=== PATIENT | male | born 1980 | race Two or more races ===

== ENCOUNTER → 2020-03-05 13:34 | Outpatient (BNVA) | payer SELFPAY | PROVIDERS: PCP Internal Medicine; Visit Provider Internal Medicine | DX: Z76.89 Persons encountering health services in other specified circumstances (principal) ==

== ENCOUNTER 2020-10-01 15:03 | Outpatient (REF) | payer OTHER, SELFPAY ==
[2020-10-01 15:36] LABS: COVID-19 Test Negative (Negative)
== END 2020-10-01 15:04 | disposition home or self-care (01) ==
LOC: HO.LAB 15:03
PROVIDERS: Visit Provider Internal Medicine
DX: Z20.822 Contact with and (suspected) exposure to COVID-19 (principal)
CPT/HCPCS: 36415; 87635; C9803

== ENCOUNTER 2020-10-20 11:37 | Outpatient (REF) | payer OTHER, SELFPAY ==
[2020-10-20 11:55] LABS: COVID-19 Test Negative (Negative)
== END 2020-10-20 11:38 | disposition home or self-care (01) ==
LOC: HO.LAB 11:37
PROVIDERS: Visit Provider Internal Medicine
DX: Z20.822 Contact with and (suspected) exposure to COVID-19 (principal)
CPT/HCPCS: 36415; 87635; C9803

== ENCOUNTER 2021-05-20 09:41 | Outpatient (REF) | payer OTHER, SELFPAY ==
[2021-05-20 09:53] LABS: MANUAL DIFF FLAG NO
[2021-05-20 10:13] LABS: Basophils Absolute Auto 0.1 X10*3/uL (0.0-0.2); Basophils Percent Auto 0.9 % (0-2); Eosinophils Absolute Auto 0.1 X10*3/uL (0.0-0.4); Eosinophils Percent Auto 1.1 % (0-4); Hematocrit 48.7 % (42.0-52.0); Hemoglobin 16.3 g/dl (14.0-18.0); Imm Gran Abs Auto 0.05 X10*3/uL (0.00-0.03); Imm Gran Pct Auto 0.6 % (0.0-0.4); Lymphocytes Absolute Auto 2.5 X10*3/uL (1.2-4.9); Lymphocytes Percent Auto 31.7 % (20-40); Mean Corpuscular HGB Conc 33.5 g/dl (31.0-36.0); Mean Corpuscular Volume 89.7 fL (80.0-98.0); Mean Platelet Volume 9.6 fL (9.4-12.4); Monocytes Absolute Auto 0.7 X10*3/uL (0.1-1.2); Monocytes Percent Auto 8.7 % (2-11); Neutrophils Absolute Auto 4.5 x10*3/uL (2.0-8.3); Platelet Count 254 X10*3/uL (160-400); Red Blood Count 5.43 X10*6/uL (4.60-5.80); Red Cell Distribution Width 12.7 % (11.0-16.0); White Blood Count 7.9 X10*3/uL (4.8-10.8)
[2021-05-20 10:40] LABS: Anion Gap 11 (12-20); Blood Urea Nitrogen 19 mg/dL (9-16); Calcium 10.1 mg/dL (8.4-10.2); Carbon Dioxide 28 mmol/L (22-29); Chloride 107 mmol/L (96-108); Estimated Glomerular Filt Rate > 60; Glucose Random 114 mg/dL (60-115); Potassium 4.6 mmol/L (3.3-5.1); Sodium 141 mmol/L (135-145)
== END 2021-05-20 09:42 | disposition home or self-care (01) ==
LOC: HO.LAB 09:41
PROVIDERS: Visit Provider Internal Medicine
DX: Z13.0 Encounter for screening for diseases of the blood and blood-forming organs and certain disorders involving the immune mechanism (principal); R51.9 Headache, unspecified
CPT/HCPCS: 36415; 80048; 85025

== ENCOUNTER 2021-07-11 10:24 | Outpatient (REF) | payer OTHER, SELFPAY ==
--- NOTE | ~2021-07-11 | US_ITS ---
EXAMINATION: US ABDOMEN COMPLETE CLINICAL INFORMATION: Unspecified abdominal pain. COMPARISON: Abdominal ultrasound 07/21/2012. TECHNIQUE: Real-time imaging of the abdominal viscera. FINDINGS: PANCREAS: Normal. ABDOMINAL AORTA: The proximal, mid, and distal segments are normal in caliber. INFERIOR VENA CAVA: Visualized portions are normal. LIVER: The liver is normal in size. The liver contour is normal. There is diffuse increased liver echogenicity. No focal hepatic lesion. There is no intrahepatic biliary duct dilatation seen. GALLBLADDER: Gallbladder wall thickness measures 0.25 cm. The gallbladder is physiologically distended without evidence of stones, sludge, polyps, wall thickening or pericholecystic fluid. COMMON BILE DUCT: Normal in caliber measuring 0.4 cm in diameter. RIGHT KIDNEY: There is anechoic complex cyst in the midpole measuring 2.8 x 2.9 x 2.4 cm. No hydronephrosis or renal calculi. The kidney measures 13.1 cm in maximum dimension. LEFT KIDNEY: Normal. No hydronephrosis. No renal calculi or focal parenchymal lesions. The kidney measures 13.8 cm in maximum dimension. SPLEEN: Normal. The spleen measures 12.6 cm in maximum dimension. FREE FLUID: None. US/US abdomen complete IMPRESSION: Complex cyst midpole right kidney measuring 2.9 cm. Rest of the abdominal ultrasound is unremarkable.
== END 2021-07-11 10:25 | disposition home or self-care (01) ==
LOC: HO.HMGCX 10:24
PROVIDERS: PCP Internal Medicine; Visit Provider Internal Medicine
DX: R10.9 Unspecified abdominal pain (principal)
CPT/HCPCS: 76700

== ENCOUNTER 2021-08-02 14:30 | Outpatient (REF) | payer OTHER, SELFPAY ==
--- NOTE | ~2021-08-02 | CT_ITS ---
EXAMINATION: CT ABDOMEN WITHOUT AND WITH CONTRAST CLINICAL INFORMATION: Unspecified abdominal pain. COMPARISON: None. TECHNIQUE: Contiguous axial thin section helical images of the abdomen were performed before and after the administration of oral contrast and 85 mL of Omnipaque 350 intravenous contrast. The data set was reformatted in the coronal and sagittal planes and reviewed on an independent workstation. This CT examination was performed using dose optimization techniques as appropriate, variously including the following: *Automated exposure control *Adjustment of mA and/or kV according to patient size (this includes techniques or standardized protocols for targeted exams where dose is matched to indication/reason for exam; i.e. extremities or head) *Use of iterative reconstruction technique DLP: 966 mGy-cm FINDINGS: LUNG BASES: Normal. LIVER, GALLBLADDER, AND BILIARY TREE: Attenuation is normal. Two calcified granulomas are present. No hepatic masses or bile duct dilatation is seen. The gallbladder is unremarkable. PANCREAS: Normal. SPLEEN: Spleen is enlarged measuring 14.9 cm in greatest dimension. ADRENAL GLANDS AND KIDNEYS: Both adrenal glands appear normal. Both kidneys are unremarkable. Incidental note made of a 2.7 cm Bosniak class I cyst at the right lower pole. This needs no further imaging or follow-up. No solid renal masses are seen. No renal calculi. No hydronephrosis. BOWEL LOOPS: The visualized bowel is unremarkable. LYMPH NODES: No retroperitoneal lymphadenopathy is seen. VASCULAR: Unremarkable. BONES: Some minimal degenerative changes are present in the spine. CT/CT abdomen wo/w con IMPRESSION: Unremarkable examination. A significant abnormality to account for the patient's abdominal pain has not been found. Fleischner guidelines were followed.
[2021-08-02] MEDS: iohexoL 350 MG/ML 100 ML INFUS..BTL IV (15:01)
== END 2021-08-02 14:31 | disposition home or self-care (01) ==
LOC: HO.CT 14:30
PROVIDERS: PCP Internal Medicine; Visit Provider Internal Medicine
DX: R10.9 Unspecified abdominal pain (principal)
CPT/HCPCS: 74170; Q9967

== ENCOUNTER → 2021-10-20 07:38 | Outpatient (BNVA) | payer OTHER, SELFPAY | PROVIDERS: PCP Internal Medicine; Referring Provider Internal Medicine; Visit Provider Nurse Practitioner | DX: K59.04 Chronic idiopathic constipation (principal) ==

== ENCOUNTER → 2022-02-27 08:08 | Outpatient (BNVA) | payer SELFPAY | PROVIDERS: PCP Internal Medicine; Visit Provider Physician Assistant Medical | DX: Z02.79 Encounter for issue of other medical certificate (principal) ==

== ENCOUNTER → 2024-02-18 13:36 | Outpatient (BNVA) | payer SELFPAY | PROVIDERS: PCP Internal Medicine; Visit Provider Physician Assistant Medical | DX: Z02.79 Encounter for issue of other medical certificate (principal) ==

== ENCOUNTER 2024-12-29 15:11 | Emergency (ER) | payer OTHER, SELFPAY ==
--- NOTE | ~2024-12-29 | XR_ITS ---
EXAMINATION: XR LUMBOSACRAL SPINE CLINICAL INFORMATION: low back pain COMPARISON: Correlated to CT abdomen and pelvis dated August 02, 2021. TECHNIQUE: AP and lateral views FINDINGS: Superior endplate sclerosis and small Schmorl nodes at L3 and L4. Small marginal osteophyte formation and L3 and L4. Facet joint hypertrophy at L4-5. Subchondral cyst formation at L5-S1 facets. No lytic or blastic lesions.. XR/XR lumbar spine 2-3V IMPRESSION: Multilevel thoracolumbar spondylosis without acute fracture or trauma-related listhesis. Spondylolysis pars interarticularis at L5-S1 without listhesis cannot be excluded. Electronically signed by: Dylan Harris MD 12/29/2024 03:54 PM EDT
[2024-12-29 15:27] VITALS: BP 159/88; PULSE 98; RESP 18; TEMP 36.7; O2SAT 96; BMI 42.0
--- NOTE | 2024-12-29 15:27 | ED_ITS ---
HPI - General Adult General Chief complaint: Back Pain/Injury Stated complaint: back pain longer than a day Time Seen by Provider: 12/29/24 21:22 Source: patient Mode of arrival: ambulatory Limitations: no limitations History of Present Illness ED Provider: Dr. Marina Castillo HPI narrative: 44 year old with no past medical history presenting with low back pain radiating to his bilateral hips ongoing for the last 48 hours or so. Patient reports that he got up from bed yesterday morning and felt pain. Had gone to bed feeling relatively normal. Admits he chronically has back pain for the last several years but has never had pain this severe. He has never seen a doctor about his back pain. He denies associated fever or chills, headaches or vision changes, stiff neck, loss of bowel or bladder control, urinary retention, direct trauma to the spine or specific injury, numbness/tingling/weakness of the extremities, IV drug use, history of recent instrumentation or injections into the spine. Had been feeling well prior to this. No recent illness including cough or cold- type symptoms, abdominal discomfort, urinary complaints or bowel changes. Had a normal bowel movement yesterday without hematochezia or melena. Related Data Previous Rx's ?Medication ?Instructions ?Recorded cyclobenzaprine 10 mg tablet 10 mg PO TID #10 tabs 09/19 methylprednisolone 4 mg tablets in 4 mg PO DAILY #21 e a 12/29/24 a dose pack (Medrol (Madhav)) Allergies Allergy/AdvReac Type Severity Reaction Status Date / Time No Known Allergies Allergy Verified 12/29/24 15:30 Review of Systems Review of Systems: as per HPI, full review of systems performed and negative but for the above mentioned pertinent positives and negatives. 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 Medical History Morbid obesity Surgical History No history of previous surgery Family History Family History Father Diabetes Mother Glaucoma Social History Social History Household Members: Significant Other and Children Housing: House Alcohol intake: current Alcohol intake frequency: does not drink Patient Tobacco Use Status: Never used Tobacco Smoked in Last 30 Days: No e-Cigarette/Vaping Use: Never Used Second Hand Smoke Exposure: No Use of substances other than those prescribed or required for medical reasons: No Advance Directives: No Advance Directives Information Provided: No Current occupational status: employed Cognitive needs: No Hearing needs: No Vision needs: No Physical Exam ED Exam Exam: GENERAL: Nontoxic-Appearing, appears uncomfortable. SKIN: Normal skin color for ethnicity, warm, dry, no rashes noted. HEENT: Normocephalic, atraumatic, no stridor, dry mucous membranes, dentition intact, EOMI, PERRLA. NECK: Soft, supple, full ROM, midline structures nontender, no step-offs, no deformities, no lymphadenopathy. CHEST: Heart regular tachycardia, no murmurs, symmetric chest rise and fall. PULMONARY: Clear to auscultation bilaterally, diminished at the bases, no labore d breathing, no wheezes/rhales/rhonchi. ABDOMINAL: Soft, nondistended, nontender, positive bowel sounds in all quadrants. : Deferred. MUSCULOSKELETAL: Normal tone, full range of motion, no deformities, no peripheral edema, midline lumbar spine pain in the lower lumbar spine L4 and L5, no step-offs, neurovascularly intact distally. NEURO: Alert and oriented x3, CN II through XII intact, equal strength and sensation bilateral upper and lower extremities, no focal neurologic deficits, +2/4 patellar reflex bilaterally. PSYCHIATRIC: Flat affect, fluid speech, good eye contact and appropriate demeanor. Vital Signs: Vital Signs - 24 hr 12/29/24 15:27 12/29/24 19:45 12/29/24 22:00 Temperature 98.0 F 98.2 F 97.7 F Pulse Rate 98 89 74 Respiratory Rate 18 18 18 Blood Pressure 159/88 H 145/93 H 145/96 H Pulse Oximetry 96 96 98 Oxygen Delivery Method Room Air Room Air Room Air BMI result Body Mass Index 42.0 Course Course Course Narrative: RME performed by Mariaelena Khan PA-C. Patient is a 44 year old assigned male at presenting to the emergency department with low back pain. Detailed physical exam and review of systems are deferred to the package clerk. Imaging ordered. Patient placed back in the waiting room pending room av ailability and results. Medications Administered Discontinued Medications Generic Name Dose Route Start Last Admin Trade Name Chloe PRN Reason Stop Dose Admin Dexamethasone Sodium Phosphate 10 mg 12/29/24 21:41 12/29/24 21:57 Dexamethasone Sod Phosphate 10 Mg/Ml Vial IM 12/29/24 21:42 10 mg ONCE ONE Administration Diazepam 5 mg 12/29/24 21:41 12/29/24 21:57 Diazepam 5 Mg Tablet PO 12/29/24 21:42 5 mg ONCE ONE Administration Ketorolac Tromethamine 30 mg 12/29/24 21:41 12/29/24 21:57 Ketorolac Tromethamine 30 Mg/Ml Vial IM 12/29/24 21:42 30 mg ONCE ONE Administration Medical Decision Making Medical Decision Making [facility] Narrative: Patient presents today with a chief complaint of back pain. Differential diagnosis includes musculoskeletal pain, osseous abnormality such as fracture or tumor, infection, spinal cord pathology such as cauda equina syndrome, ligamentous or disc pathology, vascular abnormalities, among many others. I reviewed the list of red flag features such as trauma, weight loss, abnormal neurological findings such as weakness, bowel or bladder incontinence, saddle paresthesia, as well as history of cancer, IV drug abuse, fever, to list a few. Based on history and physical examination, workup was initiated and results were reviewed. 9:52 PM 12/29/2024 (Dr. Marina Castillo, D.O.) x-ray does not show evidence of acute fracture. There are multiple degenerative changes in the lumbar spine. He has no neurologic deficits on my exam and is ambulatory without assistance though he does appear to be in significant pain. No evidence of cauda equina. Plan for pain control, steroids and muscle relaxers. Discussed importance of follow-up as well as strict return precautions at length. Discharged home in stable condition. Differential Diagnosis Differential Diagnoses: The differential diagnosis associated with the presentation includes (As above) Admission/Observation Consideration of admission/observation: Escalation of care including admission/observation considered Radiology Impression Discussion of test interpretation with radiology: I have reviewed the radiologist's reading. Radiologist Impression: EXAMINATION: XR LUMBOSACRAL SPINE CLINICAL INFORMATION: low back pain COMPARISON: Correlated to CT abdomen and pelvis dated August 02, 2021. TECHNIQUE: AP and lateral views FINDINGS: Superior endplate sclerosis and small Schmorl nodes at L3 and L4. Small marginal osteophyte formation and L3 and L4. Facet joint hypertrophy at L4-5. Subchondral cyst formation at L5-S1 facets. No lytic or blastic lesions.. XR/XR lumbar spine 2-3V IMPRESSION: Multilevel thoracolumbar spondylosis without acute fracture or trauma-related listhesis. Spondylolysis pars interarticularis at L5-S1 without listhesis cannot be excluded. Electronically signed by: Dylan Harris MD 12/29/2024 03:54 PM EDT Prescription Management I considered prescription management with: Pain Medication Discharge Plan Discharge Clinical Impression: Strain of lumbar region, Acute low back pain Patient Disposition: Home, Self-Care Instructions: Acute Low Back Pain (ED), Lower Back Exercises (ED) Additional Instructions: Keep a close eye on your back pain over the next several days. Use muscle relaxers (cyclobenzaprine) for pain and take the Medrol Dosepak until the course is completed. Return to the ER with any new or worsening symptoms including: Fevers greater than 100?, loss of bowel or bladder control, weakness in your legs, any new symptom that concerns you. Call 911 with any medical emergency. Prescriptions: New cyclobenzaprine 10 mg tablet 10 mg PO TID Qty: 10 0RF methylprednisolone [Medrol (Madhav)] 4 mg tablets,dose pack 4 mg PO DAILY Qty: 21 0RF Stand Alone Forms: Work/School Release Print Language: Latvian
[2024-12-29 19:45] VITALS: BP 145/93; PULSE 89; RESP 18; TEMP 36.8; O2SAT 96
[2024-12-29 22:00] VITALS: BP 145/96; PULSE 74; RESP 18; TEMP 36.5; O2SAT 98
[2024-12-29 22:32] VITALS: BP 145/96; PULSE 74; RESP 18; TEMP 36.5; O2SAT 98
== END 2024-12-29 22:32 | disposition home or self-care (01) ==
PROVIDERS: Emergency Provider Emergency Medicine; PCP Internal Medicine
DX: S39.012A Strain of muscle, fascia and tendon of lower back, initial encounter (principal); X58.XXXA Exposure to other specified factors, initial encounter; Y93.9 Activity, unspecified; Y92.9 Unspecified place or not applicable; Y99.9 Unspecified external cause status
CPT/HCPCS: 72100; 96372; 99284; J1100; J1885

== ENCOUNTER → 2024-12-29 15:31 | Outpatient (BNV) | payer OTHER, SELFPAY | PROVIDERS: PCP Internal Medicine; Visit Provider Radiology Diagnostic Radiology | DX: M51.360 Other intervertebral disc degeneration, lumbar region with discogenic back pain only (principal) | CPT/HCPCS: 72100 ==

== ENCOUNTER 2025-03-30 15:38 | Outpatient (AMB) | payer OTHER, SELFPAY ==
--- NOTE | 2025-03-30 15:54 | A.OFFPC_ITS ---
Vital Signs 03/30/25 15:57 Height 5 ft 11.65 in Weight 322 lb BMI 44.1 BP 140/88 H Blood Pressure Location Lt brachial Position Sitting Pulse 95 Pulse Source Pulse Oximeter Temp 97.3 F Temp Source Temporal Artery Scan Pulse Oximetry (%) 94 Oxygen Delivery Method Room Air Intake Visit Reasons: Re-establish care Intake Note: Patient is a here re-establish care for Obesity, Chronic Idiopathic constipation. Transferring care from Dr Robison. Medical records have been requested and have received. Slope Runner Required: No Spinning Lathe Operator Automatic: Not Required per policy Accompanied by: Self / Same As Patient Allergies No Known Allergies Allergy (Verified 03/30/25 15:56) Tobacco use date assessed: 03/30/25 Dental Screening Dental Screen Date: 03/30/25 Did you have a dental visit in the last 12 months?: No Did you have a dental problem in the last 6 months where you did not have access to dental care?: No Was dental information given to patient?: No HPI HPI Comments History of Present Illness Details Patient is a 44-year-old male with no significant past medical history presenting today to establish care. Patient reports history of hemorrhoids. Otherwise is not aware of previous diagnosis of hypertension. Is currently not on any medications. Family history remarkable for diabetes in the father and heart attack in maternal grandfather. Has 3 older sisters and a younger brother who are all healthy. Denies surgical history. Lives with his , has 3 kids. Denies smoking, marijuana or illicit drug use. Social alcohol. 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 Patient reports loud snoring, not aware of any sleep apnea in the night. Denies waking up gasping for air. Reports morning fatigue if it did not get enough sleep. [facility] Medical History Morbid obesity Surgical History No history of previous surgery Family History (Updated 03/30/25 @ 15:54 by BONI Tolentino) Father Diabetes Mother Glaucoma Social History Household Members: Significant Other and Children Housing: House Alcohol intake: current Alcohol intake frequency: does not drink Patient Tobacco Use Status: Never used Tobacco e-Cigarette/Vaping Use: Never Used Second Hand Smoke Exposure: No service: No Current occupational status: employed Current occupation: [employer] Cognitive needs: No Hearing needs: No Vision needs: No Questionnaire PHQ-9 Over the last 2 weeks, how often have you been bothered by any of the following problems? 1. Little interest or pleasure in doing things: not at all 2. Feeling down, depressed, or hopeless: not at all 3. Trouble falling or staying asleep, or sleeping too much: not at all 4. Feeling tired or having little energy: not at all 5. Poor appetite or overeating: not at all 6. Feeling bad about yourself - or that you are a failure or have let yourself or your family down: not at all 7. Trouble concentrating on things, such as reading the newspaper or watching television: not at all 8. Moving or speaking so slowly that other people could have noticed. Or the opposite - being so fidgety or restless that you have been moving around a lot more than usual: not at all 9. Thoughts that you would be better off or of hurting yourself in some way: not at all Total score: 0 Depression Screening Interpretation: Negative Depression Screening Done: Yes Source: Developed by Drs. Mukesh Flanagan, Radha Morfin, Dung Hardwick and colleagues, with an educational reji from [employer] Thrive Questionnaire Date Thrive assessed: 03/30/25 I am a: Patient What is your living situation today?: I have a steady place to live Within the past 12 months, did the food you bought not last and you didn't have the money to get more?: Never true Within the past 12 months, did you worry whether your food would run out before you got money to buy more?: Never true Do you have trouble paying for medicines?: No Do you have trouble getting transportation to medical appointments?: No Do you have trouble paying your heating and electricity bill?: No Do you have trouble taking care of your child, family member or friend?: No Do you have trouble with day-to-day activities such as bathing, preparing meals, shopping, managing finances, etc.?: No Are you currently unemployed and looking for a job?: No Are you interested in more education?: No Please select the resources that you would like help with: None Currently or been in a relationship where the following occur: No concerns reported THRIVE Score: 0 AUDIT C Alcohol Use Questionnaire (AUDIT-C) 1. How often do you have a drink containing alcohol?: Monthly or less 2. How many drinks containing alcohol do you have on a typical day when you are drinking?: 1 or 2 Total Score: 1 YESI-7 AMB Questionnaire YESI-7 Date YESI - 7 assessed: 03/30/25 Feeling nervous, anxious, or on edge: 0 = Not at all Not being able to stop or control worryin = Not at all Worrying too much about different things: 0 = Not at all Trouble relaxin = Not at all Being so restless that it is hard to sit still: 0 = Not at all Becoming easily annoyed or irritable: 0 = Not at all Feeling afraid as if something awful might happen: 0 = Not at all Total YESI-7 score (0-4 normal; 5-9 mild; 10-14 moderate; 15-21 severe): 0 Source: Developed by Drs. Mukesh Flanagan, Radha Morfin, Dung Hardwick and colleagues, with an educational reji from [employer] Physical exam (Primary Care) Vital Signs: Last Vital Signs Temp 97.3 F 03/30/25 15:57 Pulse 95 03/30/25 15:57 BP 140/88 H 03/30/25 15:57 Pulse Ox 94 03/30/25 15:57 Oxygen Delivery Method Room Air 03/30/25 15:57 General: Well-appearing, alert, oriented ?3, in no acute distress. HEENT: Normocephalic, atraumatic, PERRLA, EOMI, no scleral icterus. Cardiovascular: RRR, S1-S2 appreciated, no murmurs, rubs or gallops. Respiratory: Lungs clear to auscultation bilaterally, no wheezes, rales or rhonchi. Abdomen: Soft, nontender, nondistended. Normoactive bowel sounds. BMI result Body Mass Index 44.1 Tobacco/Smoking Status: Tobacco use Status Tobacco use date assessed 03/30/25 03/30/25 16:02 Patient Tobacco Use Status Never used Tobacco 03/30/25 16:02 e-Cigarette/Vaping Use Never Used 03/30/25 16:02 PHQ-9: PHQ-9 Score PHQ-9: Total score 0 03/30/25 16:03 Depression Screening Interpretation: Negative Thrive Assessment: Date of Thrive Assessment Date Thrive assessed 03/30/25 03/30/25 16:02 Currently or been in a relationship where the following occur: No concerns reported Coding Level of Care Code New Pt Level 4 (16458) Diagnoses Establishing care with new doctor, encounter for Z76.89 Morbid obesity E66.01 Hypertension, unspecified type I10 Hypertension type: unspecified Snoring R06.83 Assessment & Plan Assessment & Plan (1) Establishing care with new doctor, encounter for: Code(s): Z76.89 - Persons encountering health services in other specified circumstances Plan: Patient presenting to establish care. (2) Morbid obesity: Code(s): E66.01 - Morbid (severe) obesity due to excess calories Category: Medical Plan: Will obtain basic labs: CMP, CBC, lipid panel and A1c (3) Hypertension: Code(s): I10 - Essential (primary) hypertension Category: Medical Qualifiers: Hypertension type: unspecified Qualified Code(s): I10 - Essential (primary) hypertension Plan: Patient noted to have elevated blood pressure 140/88. As per chart review, patient had persistently elevated readings in the past with systolic in 140s- 150s/90s. Recommended to start patient on medication, however he is reluctant to the idea. He would like to try lifestyle modifications 1st. Patient educated about DASH diet and healthy food options including low sodium diet, and Exercises recommendation of 30 minutes a day of moderate intensity exercise for 5 days a week. Plan: - dietary modifications and exercising - evaluate for possible underlying LEELA -return to clinic in 2 weeks for nurse visit for blood pressure check - follow up in 3 months to re-evaluate. If persistently high and lifestyle modification did not work, we will probably start on a medication. (4) Snoring: Code(s): R06.83 - Snoring Category: Medical Plan: Patient with morbid obesity with BMI of 44 and reports of loud snoring in addition to the elevated blood pressure, raising suspicion for underlying LEELA. Patient referred to sleep Medicine for further evaluation. Orders: Orders Hemoglobin A1c Today E66.01 - Morbid (severe) obesity due to excess calories Lipid Panel with Reflex Today E66.01 - Morbid (severe) obesity due to excess calories Complete Blood Count Auto Diff Today I10 - Essential (primary) hypertension Comprehensive Met. Panel Today E66.01 - Morbid (severe) obesity due to excess calories Referrals Sleep Medicine Referral R06.83 - Snoring
[2025-03-30 15:57] VITALS: BP 140/88; PULSE 95; TEMP 36.3; O2SAT 94; BMI 44.1
== END 2025-03-30 16:45 | disposition home or self-care (01) ==
LOC: HO.HMCH 15:39
PROVIDERS: PCP Internal Medicine; Visit Provider Student in an Organized Health Care Education/Training Program
DX: I10 Essential (primary) hypertension (principal); E66.01 Morbid (severe) obesity due to excess calories; Z68.41 Body mass index [BMI] 40.0-44.9, adult; R06.83 Snoring